=== PATIENT | male | born 1990 | race Caucasian/White ===

== ENCOUNTER 2023-04-05 15:37 | Emergency (ER) | payer OTHER ==
[~2023-04-05] VITALS: Ht 172.7 cm; Wt 81.4 kg
[2023-04-05] MEDS ORDERED: METOCLOPRAMIDE INJ 10MG/2ML VIAL IV ONE (16:40)
[2023-04-05] MEDS ORDERED: NS 1,000 ML IV ONE (16:40)
[2023-04-05] MEDS ORDERED: KETOROLAC 30 MG/ML 1ML VIAL IV ONE (16:40)
[2023-04-05 17:11] LABS: BASO % 0.4 % (0.0-1.0); EOS # 0.1 10^3/uL (0.0-0.5); EOS % 1.5 % (0.0-3.0); HEMATOCRIT 40.4 % (42.0-52.0); HEMOGLOBIN 13.9 g/dl (13.5-17.5); MEAN CORPUSCULAR HGB CONC 34.4 g/dl (32.0-36.5); MEAN CORPUSCULAR VOLUME 87.3 fl (80.0-96.0); MONO # 0.7 10^3/uL (0.0-0.8); MONO % 7.2 % (2.0-8.0); NEUTROPHILS # 6.5 10^3/uL (1.5-8.5); NEUTROPHILS % 69.2 % (36.0-66.0); PLATELET COUNT, AUTOMATED 307 10^3/uL (150-450); RED BLOOD COUNT 4.63 10^6/uL (4.30-6.10); WHITE BLOOD COUNT 9.4 10^3/uL (4.0-10.0)
[2023-04-05 17:39] LABS: BLOOD UREA NITROGEN 15 MG/DL (9-23); CALCIUM LEVEL 9.1 MG/DL (8.5-10.1); CARBON DIOXIDE LEVEL 30 MMOL/L (20-31); CHLORIDE LEVEL 103 MMOL/L (98-107); GLOMERULAR FILTRATION RATE > 60.0 (>60); GLUCOSE, FASTING 107 MG/DL (60-100); MAGNESIUM LEVEL 1.9 MG/DL (1.8-2.4); SODIUM LEVEL 140 MMOL/L (136-145)
[2023-04-05 17:41] LABS: FREE T4 1.01 NG/DL (0.89-1.76); THYROID STIMULATING HORMONE 1.275 uIU/ML (0.55-4.78)
[2023-04-05 18:20] VITALS: BP 136/90
== END 2023-04-05 18:26 | disposition home or self-care (01) ==
LOC: M ED 15:37
DX: G44.209 Tension-type headache, unspecified, not intractable (principal); M54.2 Cervicalgia; R00.0 Tachycardia, unspecified; Z88.0 Allergy status to penicillin; Z88.1 Allergy status to other antibiotic agents
CPT/HCPCS: 70450; 72125; 80048; 83735; 84439; 84443; 85025; 93005; 96361; 96374; 96375; 99284; J1885; J2765

== ENCOUNTER → 2023-12-08 | Outpatient (REF) | LOC: M PLAIMG 11:03 | PROVIDERS: ATTEND Internal Medicine | DX: R06.02 Shortness of breath (principal); M54.9 Dorsalgia, unspecified ==